=== PATIENT | female | born 1965 | race Caucasian/White ===

== ENCOUNTER 2024-08-18 11:36 | Outpatient (AMB) | payer OTHER, SELFPAY ==
--- NOTE | 2024-08-18 11:48 | A.OFFVIS_ITS ---
Vital Signs 08/18/24 11:49 Height 5 ft 7 in Intake Visit Reasons: Tremor Allergies latex (LATEX) Allergy (Intermediate, Unverified 08/18/24 11:54) RASH/ITCH Penicillins (PENICILLINS) Allergy (Intermediate, Unverified 08/18/24 11:54) ITCH/RASH doxycycline Allergy (Unknown, Verified 08/18/24 12:06) Unknown NSAIDS (Non-Steroidal Anti-Inflamma Allergy (Unknown, Verified 08/18/24 12:06) Unknown zolpidem Allergy (Unknown, Verified 08/18/24 12:06) Unknown Medication List - Last Reconciled 08/18/24 by Esperanza Gomez, SILVIA albuterol sulfate 90 mcg/actuation 2 puffs inhalation Q6H PRN aripiprazole 10 mg PO DAILY aspirin (Adult Low Dose Aspirin) 81 mg PO DAILY atorvastatin 20 mg PO BEDTIME bupropion HCl SR (Wellbutrin SR) 150 mg PO DAILY bupropion HCl XL 300 mg PO QAM calcium carbonate (Tums) 200 mg PO BID CPAP (CPAP Machine/Device) As directed diazepam 2 mg PO .q12hrs PRN diphenhydramine HCl (Banophen) 50 mg PO BEDTIME PRN docusate sodium (Colace) 100 mg PO TID duloxetine 30 mg PO DAILY duloxetine 60 mg PO DAILY estradiol (Estrace) 0.5 mg PO DAILY fentanyl 50 mcg/hr 1 patch transdermal Q72H fluticasone propion-salmeterol 500-50 mcg/dose (Advair Diskus) 1 inh inhalation BID gabapentin 300 mg orally 1 capsule twice a day and 2 capsules at bedtime; inhalational spacing device (Aerochamber MV spacer) As directed lancets As directed lancets (FreeStyle Lancets) As directed levalbuterol HCl 0.31 mg inhalation Q8H levalbuterol tartrate 45 mcg/actuation 2 puffs inhalation Q4-6H PRN magnesium citrate,mag oxide 250 mg PO DAILY melatonin 3 mg PO BEDTIME PRN metformin 1,500 mg PO DAILY montelukast (Singulair) 10 mg PO BEDTIME multivitamin (Daily Multi-Vitamin tablet) 1 tab PO DAILY nitroglycerin (Nitrostat) 0.4 mg sublingual Q5M PRN nystatin-triamcinolone appl topical omega-3 fatty acids 2,000 mg PO DAILY omeprazole 40 mg PO DAILY plecanatide 3 mg PO DAILY primidone 100 mg PO BID trazodone 50 mg PO BEDTIME PRN vitamin B complex (B Complex-Vitamin B12 tablet) 1 tab PO DAILY HPI Comments Details: 59 yo woman with IDDM, HTN, depression, anxiety, asthma, and familial tremor. She was doing okay. She was living with her younger sister. Tremor was still there, but it was a little better with primidone. She was happy with medication as she was able to feed herself now without food going everywhere. She still needed help cutting food. No recent falls. Sleep was okay, using CPAP. [facility] Medical History (Updated 08/18/24 @ 12:17 by Esperanza Gomez CNP) GERD (gastroesophageal reflux disease) Asthma HLD (hyperlipidemia) Hypertension Familial tremor Cerebral microvasculopathy Parkinsonism Depression with anxiety Diabetes mellitus Family History (Updated 08/18/24 @ 12:06 by Esperanza Gomez CNP) Father Myocardial infarct Diabetes Alcohol abuse Mother Myocardial infarct Diabetes HTN (hypertension) Tremor Family/Other Breast cancer Sister Tremor Social History (Updated 01/07/22 @ 10:51 by Nevin Vidal [facility]) Alcohol intake: never Patient Tobacco Use Status: Never used Tobacco Review of Systems Const Denies chills, Denies daytime sleepiness, Denies difficulty sleeping, Denies fatigue, Denies fever(s), Denies frequent falls, Denies headache(s), Denies increased appetite, Denies poor appetite, Denies snoring, Denies weakness, Denies weight gain and Denies weight loss Eyes Denies loss of vision ENT Denies vertigo, Reports dizziness and Denies headache(s) Card Denies chest pain at rest, Denies chest pain with activity, Denies leg edema and Denies palpitations Resp Denies snoring GI Denies constipation, Denies heartburn, Denies diarrhea and Denies nausea Denies urinary frequency, Reports urinary incontinence and Denies urinary urgency Musc Denies abnormal gait, Denies numbness and Denies tingling Skin/Breast Denies dry skin and Denies rash Neuro Denies abnormal gait, Denies vertigo, Reports dizziness, Denies frequent falls, Denies headache(s), Denies lack of coordination, Denies loss of vision, Denies memory loss, Denies numbness, Denies restless legs, Denies seizure-like activity, Denies tingling, Denies paresthesias, Reports tremor(s) and Denies weakness Psych Reports anxiety, Reports depression, Denies auditory hallucinations, Denies memory loss, Denies visual hallucinations and Denies suicidal ideation Endo Denies fatigue and Denies palpitations Physical Exam Const Other: General Appearance:? normal, in no acute distress. Skin:? no rashes, no significant birthmarks. Heart:? S1, S2 normal, no murmurs. Lungs:? clear anteriorly and posteriorly. Extremities:? no edema. Psych:? alert, oriented, cognitive function intact, cooperative with exam. Neuro Other: Mental Status:?Normal attention, orientation, memory and affect.? Cranial Nerves:?Pupils are equal, round and reactive to light. External occular muscles are intact. Visual buck are full. Face is symmetrical. Facial sensations are normal. Tongue is midline. Palate elevates symmetrically. Shoulder shrugging is normal. Hearing to bedside conversation is normal. Motor Examination:?DTRs are absent with flexor plantars. Sensory Exam:?Vibration present in toes. Gait Exam: Slow and cautious with cane. Cerebellar Signs:?[id number] with bilateral tremor. Extrapyramidal System:?Mild to moderate bilateral hand resting tremor. Mild chin tremor. Facial expression and blinking were slightly reduced. Pronator Drift:?Not present.? Involuntary Movements:?Moderate bilateral hand postural tremor. Speech:?Normal.? Assessment & Plan Assessment & Plan (1) Familial tremor: Code(s): G25.0 - Essential tremor Category: Medical Plan: Increase primidone 50mg 2 tablets three times a day. (2) Tardive dyskinesia: Code(s): G24.01 - Drug induced subacute dyskinesia Category: Medical Plan: Probably related to long-term treatment with anti-psychotic medications for depression/anxiety. Treatment of this condition was not the focus at this time. (3) Parkinsonian tremor: Code(s): G20.C - Parkinsonism, unspecified Category: Medical Plan: . (4) Parkinsonian features: Code(s): R29.818 - Other symptoms and signs involving the nervous system Category: Medical Plan: . Medications: New primidone 100 mg (2 x 50 mg) PO TID 540 tabs 1RF 90 days Discontinued primidone Discontinued Reason: Order 100 mg PO BID Coding Level of Care Code Est Pt Level 4 (56724) Diagnoses Familial tremor G25.0 Tardive dyskinesia G24.01 Parkinsonian tremor G20.C Parkinsonian features R29.818
--- OUTSIDE RECORDS SUMMARY | 2024-08-18 12:49 | XMS_ITS | Clinical Summary ---
Author Organization [facility] Address [address] [place] [address] Phone Care Team Providers [employer] Dean Name Role Phone Vannessa Landry MD Primary Care Prov ider Allergies Active Allergy Reactions Criticality Noted Date Comments Amoxicillin Itching Medium 10/18/2013 Doxy 04/02/2011 Rash, yeast infection, diarrhea House Dust 01/02/2024 Latex Rash 12/22/2009 Mold Sneezing 01/02/2024 Other Reaction(s): rhinitis Nsaids (Non-Steroidal Anti-Inflammatory Drug) GI intolerance 12/28/2009 Other 09/26/2010 Spices,[place] juice, ketchup, vinager NOTHING ACIDIC,lactose intolerance Penicillanic Sulfone Bl Beta-Lactamase Inhibitors 05/15/2018 Penicillins 01/22/2011 Pollen Extracts 01/02/2024 Zolpidem 07/31/2010 Drove without remembering doing so when on Ambien Medications albuterol 2.5 mg /3 mL (0.083 %) nebulizer solution Take 1 Vial by nebulization every 6 hours as needed for Wheezing or Shortness of Breath for up to 364 days. 08/22/19 24 025 Active albuterol HFA (PROAIR HFA ; PROVENTIL HFA ; VENTOLIN HFA) 90 mcg/actuation inhaler Inhale 2 Puffs into the lungs every 6 hours as needed for Cough or Wheezing for up to 364 days. 06/27/19 24 025 Active buPROPion XL (WELLBUTRIN XL) 300 mg 24 hr tablet Take 1 tablet (300 mg total) by mouth 1 (one) time each day in the morning. Active buPROPion SR (WELLBUTRIN SR) 150 mg 12 hr tablet Take 1 tablet (150 mg total) by mouth 1 (one) time each day. Active methylPREDNISo lone sod suc,PF, (SOLU-Medrol, PF,) 40 mg/mL injection Inject as directed. Active nitroglycerin (NITROSTAT) 0.[address] 1 Tablet under the tongue every 5 minutes as needed. 08/04/19 22 Active pantoprazole (PROTONIX) 40 mg EC tablet Take 1 tablet (40 mg total) by mouth 1 (one) time each day. Active plecanatide (Trulance) 3 mg tablet Take by mouth daily. Active traZODone (DESYREL) 50 mg tablet Take 1 Tablet by mouth at bedtime. Active fluticasone furoate-vilant Damir (BREO ELLIPTA) 200-25 mcg/dose inhaler Inhale 1 Puff into the lungs daily for 364 days. 08/22/19 24 025 Active omega-3 acid ethyl esters (LOVAZA) 1 gram capsule Take 2 capsules (2 g total) by mouth 1 (one) time each day. 06/11/19 24 Active multivitamin (MULTIPLE VITAMINS ORAL) Take 1 tablet by mouth 1 (one) time each day. 05/15/19 24 Active levalbuterol (XOPENEX) 0.31 mg/3 mL nebulizer solution Take 1 Ampule by nebulization every 4 hours as needed for Wheezing. 03/27/19 24 Active FREESTYLE LANCETS [facility] Check blood sugar once daily 02/14/19 24 Active blood sugar diagnostic (FreeStyle Lite Strips) test strip Use to test blood sugar once daily 02/14/19 24 Active blood-glucose meter (BLOOD GLUCOSE MONITORING [facility]) USE TO TEST BLOOD SUGAR ONCE DAILY 02/14/19 24 Active nystatin (MYCOSTATIN) cream apply TO affected AREAS UNTIL RASH is GONE AND FOR additional 48 hours 07/19/19 21 Active estradioL (ESTRACE) 0.5 mg tablet Take 1 Tab by mouth at bedtime. 05/02/19 21 Active ARIPiprazole (ABILIFY) 10 mg tablet Take one tablet by mouth daily at bedtime 12/01/19 20 Active omeprazole (PriLOSEC) [address] capsule Take 1 Cap by mouth daily. 09/06/19 20 Active DULoxetine (CYMBALTA) [address] capsule Take 1 Cap by mouth daily. 07/27/19 20 Active UNABLE TO FIND Blood Glucose Calibration (FREESTYLE CONTROL SOLUTION) Liquid 1 Each 3 08/17/2018 Sig: Check daily Sent to pharmacy as: FreeStyle Control Solution In Vitro Liquid 08/18/19 19 Active DULoxetine (CYMBALTA) [address] capsule 12/23/19 18 Active UNABLE TO FIND Incontinence Supply Disposable (ADHERES INCONTINENCE PAD Active reservoir inhalation (INSPIREASE) device Use with inhaler 03/31/19 16 Active calcium carbonate (TUMS ORAL) Take by mouth as needed. Active cyanocobalamin (VITAMIN B-12) 500 mcg tablet Take 1 tablet (500 mcg total) by mouth 1 (one) time each day. 01/22/20 14 Active aspirin 81 mg EC tablet Take 81 mg by mouth daily. Active UNABLE TO FIND CPAP Historical (HISTORICAL CPAP) Sig - Route: 9 cm by Nasal route at bedtime. BHI&R - Nasal Active levalbuterol (XOPENEX HFA) 45 mcg/actuation inhaler Inhale 2 Puffs into the lungs every 4 hours as needed for Wheezing, Shortness of Breath or Cough (to 6 hours as needed). to 6 hrs as needed 10/09/19 14 Active primidone (MYSOLINE) 50 mg tablet Take 2 tablets (100 mg total) by mouth 2 (two) times a day. Active predniSONE (DELTASONE) 10 mg tablet Take 2 tabs PO daily for 3 days then 1 tab PO daily for 4 days 10 tablet 03/16/19 25 Active Additional Information Patient not taking.Reported on 08/12/2024 umeclidinium (Incruse Ellipta) 62.5 mcg/actuation inhalation Inhale 1 puff by mouth 1 (one) time each day. 3 each 3 04/08/19 25 026 Active magnesium oxide 250 mg magnesium tablet Take 1 tablet (250 mg total) by mouth 1 (one) time each day. 90 tablet 1 04/17/19 25 Active atorvastatin (LIPITOR) 20 mg tablet TAKE 1 TABLET BY MOUTH DAILY 90 tablet 1 04/17/19 25 Active montelukast (SINGULAIR) 10 mg tablet Take 1 Tablet by mouth at bedtime. 90 tablet 1 04/21/19 25 Active metFORMIN (GLUCOPHAGE) 500 mg tablet TAKE 2 TABLETS BY MOUTH EVERY MORNING AND TAKE 1 TABLET EVERY EVENING 270 tablet 06/05/19 25 Active Banophen 25 mg capsule Take 2 capsules (50 mg total) by mouth at bedtime 180 capsule 07/10/19 25 Active docusate sodium (COLACE) 100 mg capsule TAKE 1 CAPSULE BY MOUTH THREE TIMES DAILY NEEDED FOR constipation 270 capsule 08/03/19 25 Active cholecalcifero l (VITAMIN D-3) 50 mcg (2,000 unit) tablet Take 1 tablet (2,000 Units total) by mouth 1 (one) time each day. 07/24/19 25 Active gabapentin (NEURONTIN) 100 mg capsule Take 1 capsule (100 mg total) by mouth 2 (two) times a day. 07/20/19 25 Active melatonin 3 mg tablet TAKE 1 TABLET BY MOUTH AT BEDTIME NEEDED FOR insomnia 90 tablet 08/18/19 25 Active docusate sodium (COLACE) 100 mg capsule TAKE 1 CAPSULE BY MOUTH THREE TIMES DAILY NEEDED FOR constipation 270 capsule 05/01/19 25 025 Discontinued melatonin 3 mg tablet TAKE 1 TABLET BY MOUTH AT BEDTIME NEEDED FOR insomnia 90 tablet 05/19/19 25 025 Discontinued Active Problems Problem Noted Date Diagnosed Date Class 2 obesity 01/02/2024 GERD (gastroesophageal reflux disease) Nonalcoholic hepatosteatosis 11/21/2023 Seasonal allergies 11/21/2023 Overview (11/21/2023): Dr Urias [address], [place], [place] Acute respiratory failure wi th hypoxia (CMS/HCC V24, CMS/HCC V28) 07/11/2023 Dependence on supplemental oxygen 07/11/2023 terminal operations manager (current) use of aspirin 07/11/2023 Unspecified asthma with (acute) exacerbation Assessment & Plan (03/16/2024 12:46 PM EST): Patient with a history of asthma, admits some cough, however on PE there is bilateral wheezings and rales. No acute distress. Will start a tapering dose of prednisone and cover with azithromycin as patient is high risk due to co morbidities. 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 Bacon; T score -2.8 femoral neck 06/28 Coronary artery disease invo lving [place] coronary artery of [place] heart 04/14/2015 Overview (11/21/2023): YARED LAD 11/2004; no [place] Last Assessment & Plan: History of remote LAD stenting. No exertional chest pain. As her ability to exert herself is limited due to her asthma and given that has been over 5 years since her last ischemic evaluation, I recommended a pharmacologic nuclear stress test to evaluate for ischemia. At this time her medical therapy appears appropriate. She is to continue a low-dose of aspirin on indefinite basis. She is a lipid profile which has been ordered although I do not have the results yet. Will continue with atorvastatin 20 mg a day. Blood pressure is well-controlled. I do not see a echocardiogram on file for over 5 years. I recommended a repeat echocardiogram to evaluate cardiac structure and function. She has mild shortness of breath which likely is related to her asthma although we should exclude structural heart disease. Following completion of cardiac testing we will follow-up with her to review the results. 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 Lees Stress incontinence 01/12/2013 Anxiety 10/11/2011 Sleep apnea 07/11/2011 Depression 06/18/2011 Cervical radiculitis 05/23/2011 Chronic back pain 05/23/2011 Hyperlipidemia with target LDL less than 70 05/11 Overview (11/21/2023): IMO update Diabetes mellitus type 2, co ntrolled, with complications ([facility] V24, [facility] V28) 04/02/2011 Insomnia 07/31/2010 Asthma 04/13/2010 Old [place] (myocardial infarction) 04/13/2010 Overview (11/21/2023): Cardiac cath 07/19 patent lad stent, normal coronary anatomy, nl lvf Overweight 04/13/2010 Palpitations 04/13/2010 Encounters Date Type Department Care Team Description 08/12/2024 11:00 AM EDT Consult Orthopedics - [address] [phone] Abhi Shea PA Sprain of right patella, initial encounter (Primary Dx); Chronic pain of right knee 08/12/2024 Telephone Pulmonolgy - [address] [facility] [address] [place] [phone] Iris Gerber MD compliance report 08/12/2024 [facility] [address] [address] [place] [address] Luciana Durand MD 08/12/2024 Telephone Orthopedics - [place] [id number] [place] [address] Abhi Shea PA 08/11/2024 11:15 AM EDT Lab Draw Station - [facility] [address] [place] [phone] KIMBERLY (obstructive sleep apnea) (Primary Dx); Screen for STD (sexually transmitted disease); Antibody response exam; Type 2 diabetes mellitus without complication, unspecified whether alf insulin use ([facility] V24, [facility] V28) 08/11/2024 10:45 AM EDT Office Visit Pulmonolgy - [address] [facility] [address] [place] [phone] Iris Gerber MD KIMBERLY (obstructive sleep apnea) (Primary Dx); COPD with asthma ([facility] V24, [facility] V28); Lung nodules; Secondhand smoke exposure; Family history of lung cancer [facility] [address] [phone] Andressa Bansal [place] 07/09/2024 Telephone Pulmonolgy [facility] [address] [phone] Iris Gerber MD 07/08/2024 9:45 AM EDT - 07/08/2024 11:59 PM EDT Hospital Encounter [address] [phone] Chronic pain of right knee Discharge Disposition: Home or Self Care 07/08/2024 9:00 AM EDT Office Visit Adult Medicine [address] [phone] Solange Sheehan PA Type 2 diabetes mellitus without complication, unspecified whether termite technician insulin use ([facility] V24, [facility] V28) (Primary Dx); Hyperlipidemia with target LDL less than 70; Chronic pain of right knee; Dysphagia, unspecified type; Class 2 severe obesity due to excess calories with serious comorbidity and body mass index (BMI) of 36.0 to 36.9 in adult ([facility] V24, [facility] V28); Need for tetanus, diphtheria, and acellular pertussis (Tdap) vaccine; Need for vaccination against Streptococcus pneumoniae; Antibody response exam; Postmenopausal; Screen for STD (sexually transmitted disease) 06/23/2024 Telephone Adult Medicine [address] [phone] Vannessa Vann MD faxed order (Jarad Alfaro - #[id number], #[id number]) 06/23/2024 Telephone Adult Medicine [address] [phone] Vannessa Vann MD home health cert 06/22/2024 Telephone Adult Medicine [address] [phone] Vannessa Vann MD home health cert 06/14/2024 Telephone Adult Medicine [address] [phone] Vannessa Vann MD faxed order (Jarad Alfaro - #[id number] ) from Last 3 Months Immunizations Name Administration Dates Next Due Influenza Quadravalent, MDCK , 0.5ml, preservative free (Flucelvax) 6mo and older 03/02/2022,10/30/2020,11/05/2019,12/02,01/27/2018 Influenza Quadrivalent, 0.5m l, preservative free (Fluarix; FluLaval; Fluzone) ages 6mo and older (Afluria) 3yo and older 02/01/2023 Influenza trivalent, 0.5mL, preservative free (Fluarix; FluLaval; Fluzone) ages 6mo and older (Afluria) 3 years and older 11/14/2023 Influenza trivalent, with pr eservative (Fluzone; Afluria) 6mo and older 11/27/2015,11/04/2014,11/11/2012,11/05,10/26/2010,11/13/2009 Pfizer SARS-CoV-2 COVID-19, mRNA, LNP-S, preservative free 06/15/2020,05/24/2020 Pneumococcal conjugate 20 va lent (Prevnar 20, PCV 20) 2mo and older 07/08/2024 Pneumococcal polysaccharide 23 valent (Pneumovax 23) 2yo and older 07/16/2010 Tdap Tetanus diptheria acell ular pertussis (Boostrix; Adacel) 7yo and older 07/08/2024,04/20/2013 Surgical History Surgery Date Site/Laterality Comments OTHER SURGICAL HISTORY 11/2009 PROCEDURE: SURGICAL STENT ROTATOR CUFF REPAIR 08/2009 PROCEDURE: HISTORICAL ROTATOR CUFF REPAIR; COMMENT: Dr Gutierres OVARIAN CYST REMOVAL 09/16/1984 PROCEDURE: HI OVARIAN CYSTECTOMY UNI/BI CHOLECYSTECTOMY 1996 PROCEDURE: HI CHOLECYSTECTOMY GASTRIC BYPASS 06/17/05 PROCEDURE: HI GASTRIC RSTCV W/BYP W/SM INT RCNSTJ LIMIT ABSRPJ OTHER SURGICAL HISTORY PROCEDURE: HI ENTEROSCOPY > 2ND PRTN W/RMVL FOREIGN BODY SHOULDER ARTHROSCOPY 08/2009; 01/19 PROCEDURE: HI SURGICAL ARTHROSCOPY SHOULDER W/LSS&RESCJ ADS; COMMENT: BONE SPUR; R arthroscopy; L arthroscopy; Dr. Barr OTHER SURGICAL HISTORY 02/06/09 PROCEDURE: HYSTEROSCOPY, SURGICAL/ABLATION TUBAL LIGATION 02/06/09 PROCEDURE: HISTORICAL TUBAL LIGATION OTHER SURGICAL HISTORY 2007 PROCEDURE: HI UNLISTED PX MECKEL'S DIVERTICULUM & MESENTERY; COMMENT: Partial bowel resection and Meckel's divertticulum resection WISDOM TOOTH EXTRACTION PROCEDURE: HISTORICAL WISDOM TEETH EXTRACTION OTHER SURGICAL HISTORY 2009 PROCEDURE: HI DILATION & CURETTAGE DX&/THER NONOBSTETRIC; COMMENT: ablation for menometorrhagia and anemia COLONOSCOPY 08/04/2008 PROCEDURE: HI COLONOSCOPY FLX DX W/COLLJ SPEC WHEN PFRMD; COMMENT: [facility] at [facility]; no polyps ESOPHAGOGASTRODUODENOSCOPY 10/25/2008 PROCEDURE: HI EGD TRANSORAL BIOPSY SINGLE/MULTIPLE; COMMENT: [facility] at [facility]; normal post-op appearance; duodenal bx normal. OTHER SURGICAL HISTORY 06/17/12 PROCEDURE: HI SINUSOT MAX ANTRT RAD W/RMVL ANTROCH POLYPS; COMMENT: Dr. Harry ESOPHAGOGASTRODUODENOSCOPY 11/30/2013 PROCEDURE: HI ESOPHAGOGASTRODUODENOSCOPY TRANSORAL DIAGNOSTIC; COMMENT: normal post-op appearance COLONOSCOPY 11/30/2013 PROCEDURE: HI COLONOSCOPY FLX DX W/COLLJ SPEC WHEN PFRMD; COMMENT: poor prep (used movi-prep); neg/incomplete to 40 cm. CORONARY STENT PLACEMENT 2004 PROCEDURE: STENT, CORONARY, PARAM; COMMENT: LAD Medical History Medical History Date Comments Cardiac arrest (CMS/HCC V24, CMS/HCC V28) DX:Cardiac arrest (HCC) [place] (myocardial infarction) ( CMS/HCC V24, CMS/HCC V28) 10/23/07 DX:[place] (myocardial infarction ) (HCC); COMMENT: Per pt, YARED stent LAD 12/21/2004, second AMI 2007 Asthma DX:Asthma; COMME NT: Dr Froylan Iron deficiency anemia DX:Iron d eficiency anemia; COMMENT: Yolanda Howell, complicated by gastric bypass Historical Medical DX DX:Angina; COMMENT: chest pain with 4 walking Rotator cuff injury DX:Rotator c uff injury History of colonic polyps DX:His tory of colonic polyps; COMMENT: Dr Carson, gets colonoscopy every 5 years Seasonal allergies DX:Seasonal a llergies; COMMENT: Dr Urias, [facility], [place], [place] Menorrhagia DX:Menorrhagia; COMMENT: Dr Bacon; now s/p endometrial ablation Small bowel obstruction (CMS /HCC V24, CMS/[facility] V28) 03/2007 DX:Small bowel obstruction ( HCC); COMMENT: Meckle's diverticulum; [facility] Coronary artery disease DX:Coron latia artery disease; COMMENT: YARED LAD 2004, Robert He, preserved EF GERD (gastroesophageal reflux disease) DX:GERD (gastroesophageal reflux disease) Morbid obesity (CMS/HCC V24, CMS/HCC V28) DX:Morbid obesity (HCC); COM MENT: gastric bypass 2005 Respiratory failure (CMS/HCC V24, CMS/HCC V28) DX:Respiratory failure ([facility]) ; COMMENT: cardiac arrest with [place] 2007 and intubation Rotator cuff tear DX:Rotator cuf f tear; COMMENT: right-repaired, left active Obesity 04/13/2010 DX:Obesity Palpitations 04/13/2010 DX:Palpitations Fibromyalgia DX:Fibromyalgia Diabetes mellitus type 2, in sulin dependent (CMS/HCC V24, CMS/HCC V28) 1992 DX:Diabetes melli tus type 2, insulin dependent ([facility]) Depression 06/18/2011 DX:Depression Anxiety 10/11/2011 DX:Anxiety Type II or unspecified type diabetes mellitus with unspecified complication, not stated as uncontrolled DX:Type II or unspecified ty pe diabetes mellitus with unspecified complication, not stated as uncontrolled Pneumonia DX:Pneumonia; CO MMENT: multiple admits; [facility] in [place] Herniated cervical disc DX:Herni ated cervical disc IFG (impaired fasting glucose) D X:IFG (impaired fasting glucose) Nonalcoholic hepatosteatosis DX: Nonalcoholic hepatosteatosis Shingles 2012 DX:Shingles [place] (myocardial infarction) 04/13/2010 D X:Old [place] (myocardial infarction); COMMENT: x2, 2004 and 2007 Left hip pain DX:Left hip pain ; COMMENT: torn cartilage, followed by dr. gutierres Infertility, female DX:Infertili ty, female Family History Medical History Relation Name Comments Heart attack Father at 53, miki shant, [place] x8, etoh Other: Other Maternal Grandfather be fore Roxy was born Other: child Maternal Grandmother d ied in her 30s Other: [place], CHF Mother diabetes, CVD ; at age 65 Breast cancer Other 1 mat aunt maternal aunt; unilateral Lung cancer Other 2 mat 1st cousin; smoker; at 68 Cervical cancer Other 3 niece Other: thyroid cancer Other 4 nephew Breast cancer Sister 1 dx'd 48 unilateral Blindness Neg Hx Cataracts Neg Hx Colon cancer Neg Hx Crohn's disease Neg Hx Glaucoma Neg Hx Macular degeneration Neg Hx Ovarian cancer Neg Hx Strabismus Neg Hx Ulcerative colitis Neg Hx Uterine cancer Neg Hx Relation Name Status Comments Father (Age 60) [place], DM,alc ohol problems Maternal Grandfather Maternal Grandmother Mother (Age 66) [place], DM,htn Other 1 mat aunt Other 2 Other 3 Other 4 Sister 1 dx'd 48 Alive Sister 2 Alive Breast CA - Age 47 - S/P Lumpectomy XRT Social History Tobacco Use Types Packs/Day Years Used Date Smoking Tobacco: Never Passive Smoke Exposure: Never Smokeless Tobacco: Never Tobacco Cessation:Counseling Given: Not Answered Alcohol Use Standard Drinks/Week Comments No 0 (1 standard drink = 0.6 oz pur e alcohol) Housing Instability Answer Date Recorde d Are you worried that in the next 2 months you may not have stable housing? No 07/08/2024 Food Access & Nutrition Answer Date Rec orded Do you have access to a vari ety of food including fruits and vegetables? Yes 07/08/2024 Access to Healthcare Answer Date Record ed Within the last 3 months, ho w many times did you visit the emergency department for your medical care? 0 07/08/2024 Health Literacy Answer Date Recorded How often do you need to hav e someone help you when you read instructions, pamphlets, or other written material from your doctor or pharmacy? Never 07/08/2024 Caregiver: How often do you need to have someone help you when you read instructions, pamphlets, or other written material from your doctor or pharmacy? Not on file 07/08/2024 Financial Risk Answer Date Recorded How hard is it for you to pa y for the very basics like food, housing, medical care, and air conditioning / heating? Not very hard 07/08/2024 Transportation Answer Date Recorded Has the lack of transportati on kept you from meetings, work, or from getting things needed for daily living? No Has the lack of transportati on kept you from medical appointments or from getting medications? No 07/08/2024 Social Isolation Answer Date Recorded How often do you feel lonely or isolated from th ose around you? Never 07/08/2024 Food Risk Answer Date Recorded Within the past 12 months we worried whether our food would run out before we got money to buy more. Never true 07/08/2024 Within the past 12 months th e food we bought just didn't last and we didn't have money to get more. Never true 07/08/2024 Dependent Care Answer Date Recorded Do you need help finding or paying for care for your loved ones. For example, children's minister or elderly care for an older adult? No 07/08/2024 Education Answer Date Recorded Do you think completing more education or training, like finishing a GED, going to college, or learning a trade, would be helpful for you? No 07/08/2024 Employment and Income Answer Date Recor ded During the last four weeks, have you been actively looking for work? No 07/08/2024 Living Situation Answer Date Recorded What is your living situation? 0 07/08/2024 Comments No Sex and Gender Information Value Date Recorded Sex Assigned at Female 02/20/2024 12:57 PM EST Legal Sex Female 5:08 AM EST Gender Identity Female 02/20/2024 12:57 PM EST Sexual Orientation Straight 02/20/2024 12 :57 PM EST Obstetrics History Last Filed Vital Signs Vital Sign Reading Time Taken Comments Blood Pressure 126/80 08/11/2024 10:25 AM EDT Pulse 95 08/11/2024 10:25 AM EDT Temperature 36.4 C (97.5 F) 07/08/2024 9:22 AM EDT Respiratory Rate 16 08/12/2024 10:33 AM EDT Oxygen Saturation 95% 08/11/2024 10:25 AM EDT Inhaled Oxygen Concentration - - Weight 86.6 kg (191 lb) 08/12/2024 10:33 AM EDT Height 157.5 cm (5' 2 ) 08/12/2024 10:33 AM EDT Body Mass Index 34.93 08/12/2024 10:33 AM EDT Plan of Treatment Upcoming Encounters Date Type Department Care Team (Late st Contact Info) Description 08/26/2024 9:[address] [facility] [address] [place] [address] 09/23/2024 10:30 AM EDT Office Visit Orthopedics [address] [phone] Abhi Shea PA [address] [place] [address] 10/22/2024 9:45 AM EDT Office Visit Adult Medicine [address] [phone] Vannessa Landry MD [address] [place] [address] 11/17/2024 11:15 AM EDT Office Visit Pulmonolgy [facility] [address] [phone] Iris Gerber MD [address] [place] [address] [phone] 03/18/2025 2:00 PM EST Office Visit Adult Medicine [address] [phone] Vannessa Landry MD [address] [place] [address] Health Maintenance Due Date Last Done Comments Diabetes: Annual Retina Eye Exam 02/06/1974 Zoster Vaccines (1 of 2) 02/06/2014 Cervical Cancer Screening: HPV 01/13/2022 01/13/2017 Medicare Annual Wellness Visit 01/19/2022 Osteoporosis Screening (Bone Density Screening) 01/19/2022 RSV Immunization Adult Patients (1 - Risk 60-74 years 1-dose series) 2024 Influenza Vaccine (#1) 2024 , 02/01/2023, 03/02/2022, Additional history exists Diabetes: Blood Sugar Control Test (HGBA1C) 02/11/2025 08/11/2024, 11/14/2023, 11/14/2023 Diabetes: Annual Foot Exam 03/16/2025 03/16/2024 Depression Screening 07/08/2025 07/08/2024 Social Influencers of Health Screening 07/08/2025 07/08/2024 Diabetes: Annual Urine Albumin-Creatinine Ratio (uACR) 08/11/2025 08/11/2024, 11/14/2023 Diabetes: Annual GFR (Glomerular Filtration Rate) 08/11/2025 08/11/2024, 11/14/2023, 11/14/2023 Hypertension/CHF/CAD Annual BMP Blood Test 08/11/2025 08/11/2024, 11/14/2023, 11/14/2023 Breast Cancer Screening 10/03/2025 10/04/2023 Colorectal Cancer Screening: Colonoscopy 01/19/2027 01/19/2022, 06/18/2016 Cholesterol Screening (Lipid Panel) 08/11/2029 08/11/2024, 11/14/2023, 11/14/2023 DTaP,Tdap,and Td Vaccines (3 - Td or Tdap) 07/08/2034 07/08/2024, 04/20/2013 COVID-19 Vaccine Discontinued 01/25/2021, 07/2020, 05/24/2020 Hepatitis C Screening Completed 10/25/2022 Pneumococcal Vaccine: 50+ Years Completed 07/08/2024, 07/16/2010 HIV Screening Completed 08/11/2024 HIB Vaccines Aged Out No longer eligi ble based on patient's age to complete this topic HPV Vaccines Aged Out No longer eligi ble based on patient's age to complete this topic Hepatitis A Vaccines Aged Out No long er eligible based on patient's age to complete this topic Hepatitis B Vaccines Aged Out No long er eligible based on patient's age to complete this topic IPV Vaccines Aged Out No longer eligi ble based on patient's age to complete this topic MMR Vaccines Aged Out No longer eligi ble based on patient's age to complete this topic Meningococcal ACWY Vaccine Aged Out N o longer eligible based on patient's age to complete this topic Meningococcal B Vaccine Aged Out No l onger eligible based on patient's age to complete this topic RSV Immunization Patients Under 20 months Aged Out No longer eligible based on patient's age to complete this topic Varicella Vaccines Aged Out No longer eligible based on patient's age to complete this topic Procedures Procedure Name Priority Date/Time Associated Diagnosis Comments COMPREHENSIVE METABOLIC PANEL Routine 08/11/2024 11:54 AM EDT Type 2 diabetes mellitus without complication, unspecified whether alf insulin use ([facility] V24, [facility] V28) HEMOGLOBIN A1C Routine 08/11/2024 11:54 AM EDT Type 2 diabetes mellitus without complication, unspecified whether termite technician insulin use ([facility] V24, [facility] V28) MICROALBUMIN CREATININE URINE RATIO Routine 08/11/2024 11:54 AM EDT Type 2 diabetes mellitus without complication, unspecified whether termite technician insulin use ([facility] V24, [facility] V28) LIPID PANEL WITH REFLEX TO DIRECT LDL Routine 08/11/2024 11:54 AM EDT Type 2 diabetes mellitus without complication, unspecified whether alf insulin use ([facility] V24, [facility] V28) VARICELLA ZOSTER ANTIBODY IGG Routine 08/11/2024 11:54 AM EDT Antibody response exam MUMPS ANTIBODY IGG Routine 08/11/2024 11 :54 AM EDT Antibody response exam RUBEOLA ANTIBODY IGG Routine 08/11/2024 11:54 AM EDT Antibody response exam RUBELLA ANTIBODY IGG Routine 08/11/2024 11:54 AM EDT Antibody response exam HIV 1, 2 ANTIBODY, P24 ANTIGEN WITH REFLEX TO DIFFERENTIATION Routine 08/11/2024 11:54 AM EDT Screen for STD (sexually transmitted disease) THYROID STIMULATING HORMONE WITH REFLEX TO FREE T4 AND FREE T3 Routine 08/11/2024 11:54 AM EDT KIMBERLY (obstructive sleep apnea) POLYSOMNOGRAPHY Routine 07/13/2024 2:10 PM EDT KIMBERLY (obstructive sleep apnea) XR KNEE 4+ VIEWS RIGHT Routine 9:59 AM EDT Chronic pain of right knee EXTERNAL MAMMOGRAM REPORT Routine 10/04/2023 1:46 PM EDT HM HEPATITIS C SCREENING Routine 10/25/2022 HM HPV Routine 01/13/2017 HM COLONOSCOPY Routine 06/18/2016 from Last 3 Months or Most Recently Relevant to Health Maintenance Results * HIV 1,2 antibody, p24 antigen with reflex to differentiation (08/11/2024 11:54 AM EDT) HIV Combo AB/AG Negative Negative LAB CHEMISTRY METHOD 08/11/2024 5:15 PM EDT [facility] Blood Venous blood specimen / Unknown Venipuncture / Unknown 08/11/2024 11:54 AM EDT 08/11/2024 11:54 AM EDT Narrative [facility] - 08/11/2024 5:15 PM EDT This assay is a 4th generation assay allowing for earlier detection of HIV infection by detecting the presence of the HIV-1 p24 antigen as well as the traditional antibodies to HIV type 1 (including group O) and type 2. Use of a 4th generation assay is the current CDC recommendation for HIV screening. us Solange MACKEY LAB BLOOD ORDERABLES Final Resu lt [facility] [address] [place] [address], [place] [phone] * Thyroid stimulating hormone with reflex to free t4 and free t3 (08/11/2024 11:54 AM EDT) [facility] TSH 1.46 0.40 - 4.00 mcIU/mL LAB CHEMISTRY METHOD 08/11/2024 5:01 PM EDT [facility] Blood Venous blood specimen / Unknown Venipuncture / Unknown 08/11/2024 11:54 AM EDT 08/11/2024 11:54 AM EDT Iris Gerber MD LAB BLOOD ORDERABLES Final Resul t [facility] [address] [place] [address], [place] [phone] * Lipid panel with reflex to direct LDL (08/11/2024 11:54 AM EDT) [facility] Cholesterol 135 0 - 200 mg/dL LAB CHEMISTRY METHOD 08/11/2024 4:12 PM T [facility] Triglycerides 94 0 - 150 mg/dL LAB CHEMISTRY METHOD 08/11/2024 4:12 PM [facility] HDL 81 >=40 mg/dL LAB CHEMISTRY METHOD 08/11/2024 4:12 PM [facility] LDL Calculated 35 0 - 100 mg/dL LAB CHEMISTRY METHOD 08/11/2024 4:12 PM T [facility] VLDL Cholesterol Romulo 18.8 mg/dL LAB CHEMISTRY METHOD 08/11/2024 4:12 PM T [facility] Non HDL Chol. (LDL+VLDL) 54 <145 mg/dL LAB CHEMISTRY METHOD 08/11/2024 4:12 PM [facility] Chol/HDL Ratio 1.7 0.0 - 4.4 LAB CHEMISTRY METHOD 08/11/2024 4:12 PM T [facility] Blood Venous blood specimen / Unknown Venipuncture / Unknown 08/11/2024 11:54 AM EDT 08/11/2024 11:54 AM EDT Solange MACKEY LAB BLOOD ORDERABLES Final Resu lt Performing Organization Address [facility]/ZIP Co de Phone Number [facility] [address] [place] [address], [place] [phone] * Microalbumin creatinine urine ratio (08/11/2024 11:54 AM EDT) Creatinine, Urine 231.0 mg/dL LAB CHEMISTRY METHOD 08/11/2024 5:01 PM EDT [facility] Microalb, Ur 24.4 0.0 - 29.0 mg/L LAB CHEMISTRY METHOD 08/11/2024 5:01 PM EDT [facility] Microalb/Creat Ratio 11 <30 mg/g creat LAB CHEMISTRY METHOD 08/11/2024 5:01 PM EDT [facility] Urine Urine specimen obtained by clean catch procedure / Unknown Non-blood Collection / Unknown 08/11/2024 11:54 AM EDT 08/11/2024 11:54 AM EDT Solange MACKEY LAB URINE ORDERABLES Final Resu lt Performing Organization Address [facility] de Phone Number [facility] [address] [place] [address], [place] [phone] * (ABNORMAL) Rubeola antibody IgG (08/11/2024 11:54 AM EDT) Rubeola IgG Negative( A) Positive LAB CHEMISTRY METHOD 08/12/2024 11:18 AM EDT [facility] Rubeola IgG Antibody, measured 10.10(L) >=16.50 AU/mL LAB CHEMISTRY METHOD 08/12/2024 11:18 AM EDT [facility] Blood Venous blood specimen / Unknown Venipuncture / Unknown 08/11/2024 11:54 AM EDT 08/11/2024 11:54 AM EDT Narrative [facility] - 08/12/2024 11:18 AM EDT Interpretation >=16.5 AU/ml is considered to be consistent with Immunity Solange MACKEY LAB BLOOD ORDERABLES Final Resu lt Performing Organization Address [facility] de Phone Number [facility] [address] [place] [address], [place] [phone] * Rubella antibody IgG (08/11/2024 11:54 AM EDT) Rubella IgG Quant 202.0 >=10.0 I Unit/mL LAB CHEMISTRY METHOD 08/11/2024 4:46 PM EDT [facility] Rubella IgG Antibody Interp Positive Positive LAB CHEMISTRY METHOD 08/11/2024 4:46 PM EDT [facility] Blood Venous blood specimen / Unknown Venipuncture / Unknown 08/11/2024 11:54 AM EDT 08/11/2024 11:54 AM EDT Solange MACKEY LAB BLOOD ORDERABLES Final Resu lt Performing Organization Address [facility] Co de Phone Number [facility] [address] [place] [address], [place] [phone] * Varicella zoster antibody IgG (08/11/2024 11:54 AM EDT) Varicella IgG Positive Positive LAB CHEMISTRY METHOD 08/12/2024 11:18 AM EDT [facility] Varicella Zoster IgG 15.60 >=1.00 S/CO LAB CHEMISTRY METHOD 08/12/2024 11:18 AM EDT [facility] Blood Venous blood specimen / Unknown Venipuncture / Unknown 08/11/2024 11:54 AM EDT 08/11/2024 11:54 AM EDT [facility] - 08/12/2024 11:18 AM EDT Interpretation >= 1.00 S/CO is considered to be consistent with Immunity Solange MACKEY LAB BLOOD ORDERABLES Final Resu lt Performing Organization Address [facility]/ZIP Co de Phone Number [facility] [address] [place] [address], [place] [phone] * (ABNORMAL) Mumps antibody IgG (08/11/2024 11:54 AM EDT) [facility] Mumps IgG Negative( A) Positive LAB CHEMISTRY METHOD 08/12/2024 11:25 AM EDT [facility] Mumps IgG Antibody, measured <5.0(L) >=11.0 AU/mL LAB CHEMISTRY METHOD 08/12/2024 11:25 AM EDT [facility] Blood Venous blood specimen / Unknown Venipuncture / Unknown 08/11/2024 11:54 AM EDT 08/11/2024 11:54 AM EDT [facility] - 08/12/2024 11:25 AM EDT >=11 AU/mL is considered to be consistent with Immunity. Solange MACKEY LAB BLOOD ORDERABLES Final Resu lt Performing Organization Address [facility]/ZIP Co de Phone Number [facility] [address] [place] [address], [place] [phone] * (ABNORMAL) Hemoglobin A1c (08/11/2024 11:54 AM EDT) [facility] Hemoglobin A1C 7.0(H) <6.5 % LAB CHEMISTRY METHOD 08/11/2024 10:19 PM EDT [facility] Mean Bld Glu Estim. 154 mg/dL LAB CHEMISTRY METHOD 08/11/2024 10:19 PM T [facility] Blood Venous blood specimen / Unknown Venipuncture / Unknown 08/11/2024 11:54 AM EDT 08/11/2024 11:54 AM EDT us Solange MACKEY LAB BLOOD ORDERABLES Final Resu lt [facility] [address] [place] [address], [place] [phone] * (ABNORMAL) Comprehensive metabolic panel (08/11/2024 11:54 AM EDT) Sodium 142 133 - 145 mmol/L LAB CHEMISTRY METHOD 08/11/2024 4:30 PM [facility] Potassium 4.6 3.5 - 5.5 mmol/L LAB CHEMISTRY METHOD 08/11/2024 4:30 PM [facility] Chloride 111(H) 96 - 110 mmol/L LAB CHEMISTRY METHOD 08/11/2024 4:30 PM [facility] CO2 24 21 - 32 mmol/L LAB CHEMISTRY METHOD 08/11/2024 4:30 PM [facility] Anion Gap 7 3 - 11 LAB CHEMISTRY METHOD 08/11/2024 4:30 PM [facility] Glucose 98 70 - 100 mg/dL LAB CHEMISTRY METHOD 08/11/2024 4:30 PM [facility] BUN 5 5 - 25 mg/dL LAB CHEMISTRY METHOD 08/11/2024 4:30 PM [facility] Creatinine 0.57 0.50 - 1.10 mg/dL LAB CHEMISTRY METHOD 08/11/2024 4:30 PM [facility] eGFR 104 >=60 mL/min/1. 73m2 LAB CHEMISTRY METHOD 08/11/2024 4:30 PM [facility] Comment:Calculation based on the Chronic Kidney Disease Epidemiology Collaboration (CKD-EPI) equation refit without adjustment for race. BUN/Creatinine Ratio 8.8 LAB CHEMISTRY METHOD 08/11/2024 4:30 PM EDT [facility] Calcium 11.8(H) 8.5 - 10.5 mg/dL LAB CHEMISTRY METHOD 08/11/2024 4:30 PM EDT [facility] AST (SGOT) 16 10 - 42 unit/L LAB CHEMISTRY METHOD 08/11/2024 4:30 PM EDT [facility] ALT (SGPT) 23 10 - 60 unit/L LAB CHEMISTRY METHOD 08/11/2024 4:30 PM EDT [facility] Alkaline Phosphatase 61 42 - 121 unit/L LAB CHE[facility]STR[facility] Total Protein 6.7 6.0 - 8.0 g/dL LAB CHEMISTRY METHOD 08/11/2024 4:30 PM EDT [facility] Albumin 3.8 3.2 - 5.0 g/dL LAB CHEMISTRY METHOD 08/11[facility]2024 [facility] Total Bilirubin 0.3 0.0 - 1.4 mg/dL LAB CHEMISTRY METHOD 08/11/2024 4:30 PM EDT [facility] Blood Venous blood specimen / Unknown Venipuncture / Unknown 08/11/2024 11:54 AM EDT 08/11/2024 11:54 AM EDT us Solange MACKEY LAB BLOOD ORDERABLES Final Resu lt [facility] [address] [place] [address], [place] [phone] * Polysomnography (07/13/2024 2:10 PM EDT) us Iris Gerber MD [facility] ORDERABLES Final Re sult * XR Knee 4+ Views Right (07/08/2024 9:59 AM EDT) Anatomical Region Laterality Modality Lower Extremities, Knee Right [facility] 07/08/2024 3:52 PM EDT Narrative 07/08/2024 3:53 PM EDT Right knee, 4 views. History pain. There is slight narrowing of the joint space medially. There is small calcification adjacent to the medial femoral condyle. No fractures, dislocations or effusion. CONCLUSIONS: Degenerative changes as detailed. Calcification adjacent to the medial femoral condyle. -------- FINAL REPORT -------- Dictated By: Luba Uribe Dictated Date: 07/08/2024 15:52 ET Assigned Physician: Luba Uribe Reviewed and Electronically Signed By: Luba Uribe Signed Date: 07/08/2024 15:53 ET Workstation ID: [id number] Transcribed By: Self Edit Transcribed Date: 07/08/2024 15:52 ET Procedure Note Luba Uribe MD - 07/08/2024 Right knee, 4 views. History pain. There is slight narrowing of the joint space medially. There is smallcalcification adjacent to the medial femoral condyle. No fractures,dislocations or effusion. CONCLUSIONS: Degenerative changes as detailed. Calcification adjacent tothe medial femoral condyle. -------- FINAL REPORT -------- Dictated By: Luba Uribe Dictated Date: 07/08/2024 15:52 ET Assigned Physician: Luba Uribe Reviewed and Electronically Signed By: Luba Uribe Signed Date: 07/08/2024 15:53 ET Workstation ID: [id number] Transcribed By: Self Edit Transcribed Date: 07/08/2024 15:52 ET Solange MACKEY IMG XR PROCEDURES Final Result * External Mammogram Report (10/04/2023 1:46 PM EDT) Anatomical Region Laterality Modality Mammography Historical Provider MD RIZZO BI PROCEDURES Final R esult * Hm Hepatitis C Screening (10/25/2022) Pathologist [facility] Hepatitis C Screening ABSTRACTED Historical Provider HEALTH MAINTENANCE Final Result * Cervical Cancer Screening: HPV (01/13/2017) Pathologist [facility] Cervical Cancer Screening: HPV negative,a bstracted Historical Provider HEALTH MAINTENANCE Final Result * Colonoscopy (06/18/2016) Pathologist [facility] Colonoscopy no interpretation , abstracted Anatomical Region Laterality Modality Other Historical Provider HEALTH MAINTENANCE Final Result from Last 3 Months or Most Recently Relevant to Health Maintenance Insurance [employer] MEDICARE Member Subscriber Plan / Payer (Ef fective 2018-Present) Name:ROXY ANGEL Relation to Subscriber:Self Name:Roxy Angel Payer ID:[id number] Group ID:[id number] Type:Not on file Address: [place] [address] [address] [id number] Care Teams Sciences Dean Relationship Specialty Start Date End Date Vannessa Landry MD [address] [place] [id number] PCP - General Internal Medicine 12/29/23
== END 2024-08-18 12:22 | disposition home or self-care (01) ==
LOC: HO.HSM 11:37
PROVIDERS: PCP Internal Medicine; Referring Provider Internal Medicine; Visit Provider Registered Nurse
DX: G25.0 Essential tremor (principal); G24.01 Drug induced subacute dyskinesia; G20.C Parkinsonism, unspecified; R29.818 Other symptoms and signs involving the nervous system
CPT/HCPCS: 99214

== ENCOUNTER → 2024-08-18 11:36 | Outpatient (BNVA) | payer OTHER, SELFPAY | PROVIDERS: PCP Internal Medicine; Referring Provider Internal Medicine; Visit Provider Registered Nurse | DX: G25.0 Essential tremor (principal); G24.01 Drug induced subacute dyskinesia; G20.C Parkinsonism, unspecified; R29.818 Other symptoms and signs involving the nervous system | CPT/HCPCS: 99212 ==